=== PATIENT | female | born 1995 | race Caucasian/White ===

== ENCOUNTER 2018-08-15 17:35 | Inpatient (IN) | payer BC ==
[2018-08-15] MEDS: ELECTROLYTE-148 SOLN 1,000 ML IV SCH ×2 (18:15→22:30)
[2018-08-15 18:39] VITALS: BMI 28.8
[2018-08-15] MEDS ORDERED: TUBERCULIN PPD 5 TU/0.1ML SYRINGE (IN PATIENT USE ONLY) ID ONE (18:45)
[2018-08-15 18:57] LABS: BASO % 0.2 % (0-2.0); EOS % 0.4 % (0-4.5); HEMATOCRIT 35.6 % (32.4-45.2); HEMOGLOBIN 12.1 GM/dL (10.7-15.3); LYMPH % 11.1 % (8-40); MCH 30.9 pg (25.7-33.7); MONO % 5.9 % (3.8-10.2); NEUT % 82.4 % (42.8-82.8); PLATELET COUNT 148 K/MM3 (134-434); RBC 3.91 M/mm3 (3.60-5.2); RDW 12.6 % (11.6-15.6); WHITE BLOOD COUNT 13.7 K/mm3 (4.0-10.0)
[2018-08-15 19:20] LABS: INR 0.86 (0.83-1.09); PROTHROMBIN TIME (PATIENT) 10.1 SEC (9.7-13.0)
[2018-08-15 19:27] LABS: ANION GAP 13 MMOL/L (8-16); BLOOD UREA NITROGEN 6 mg/dL (7-18); CALCIUM 8.8 mg/dL (8.5-10.1); CHLORIDE 106 mmol/L (98-107); CO2 21 mmol/L (21-32); CREATININE 0.5 mg/dL (0.55-1.3); GLUCOSE,RANDOM 69 mg/dL (74-106); POTASSIUM 3.8 mmol/L (3.5-5.1); SODIUM 140 mmol/L (136-145)
[2018-08-15 19:29] LABS: ACTIVATED PTT 26.8 SECONDS (25.2-36.5)
[2018-08-15] MEDS ORDERED: NALOXONE HCL 0.4 MG/ML VIAL IVPUSH PRN (20:29)
[2018-08-15] MEDS ORDERED: BUPIVACAINE HCL/PF 0.25% (2.5MG/ML) 10 ML VIAL ONE (20:36)
[2018-08-15] MEDS ORDERED: LIDO 2%/EPI 1:200000 PRESRVFRE (20 ML SDVIAL) ONE (20:36)
[2018-08-15] MEDS ORDERED: FENTANYL/BUPIVACAINE/NS/PF - PCEA - 50 ML DISP.SYRIN EP ONE (20:40)
[2018-08-15] MEDS: FENTANYL/BUPIVACAINE/NS/PF - PCEA - 50 ML DISP.SYRIN EP SCH (21:05)
--- NOTE | 2018-08-15 23:31 | HP ---
Past Medical History - Admission History of Present Illness: 23 yo @ 40 6/7 wks by first trimester ultrasound, EDC 08/09/2018 complicated by: 1. Prior CD - desires TOLAC CD in 2016, failed IOL 2. LSIL - no changes on colposcopy for repeat colpo PP 3. Anterior low lying placenta - resolved by Level 2 4. Rubella Non-immune Patient presents with chief complaint of contractions which have been irregular for the past several days but increased in frequency and intensity at approximately 1 pm . She denies leakage of fluid or vaginal bleeding. She reports movement. History Source: Patient Limitations to Obtaining History: No Limitations - Past Medical History Cardiovascular: No: HTN Pulmonary: No: Asthma Gastrointestinal: No: GERD ...: 2 ...Para: 1 ...Term: 1 ...: 0 ...Spon : 0 ...Induced : 0 ...Multiple Gestation: 0 ...LMP: 11/02/17 ... Weeks Gestation by Dates: 40.6 ...EDC by Dates: 08/09/18 ...EDC by Sono: 08/09/18 Heme/Onc: No: Anemia - Past Surgical History Past Surgical History: Yes: Hx Myomectomy: No Hx Transabdominal Cerclage: No - Smoking History Smoking history: Never smoked Have you smoked in the past 12 months: No - Alcohol/Substance Use Hx Alcohol Use: No History of Substance Use: reports: None - Social History ADL: Independent History of Recent Travel: No Home Medications - Allergies Allergies/Adverse Reactions: Allergies Allergy/AdvReac Type Severity Reaction Status Date / Time No Known Allergies Allergy Verified 08/15/18 18:22 - Home Medications Home Medications: Ambulatory Orders Prenat 115/Iron Fum/Folic/Dss [ 19 Tablet] 1 tab PO DAILY 05/11/16 Family Disease History - Family Disease History Family History: Denies Review of Systems - Review of Systems Constitutional: reports: No Symptoms Neck: reports: No Symptoms Cardiovascular: reports: No Symptoms Respiratory: reports: No Symptoms Gastrointestinal: reports: No Symptoms Genitourinary: reports: No Symptoms Musculoskeletal: reports: No Symptoms Integumentary: reports: No Symptoms Hematology/Lymphatic: reports: No Symptoms Psychiatric: reports: No Symptoms Physical Exam - Maternity Vital Signs: Vital Signs Temperature 97.6 F 08/15/18 22:00 Pulse Rate 80 08/15/18 21:50 Respiratory Rate 16 08/15/18 21:50 Blood Pressure 100/56 L 08/15/18 21:50 O2 Sat by Pulse Oximetry (%) 99 08/15/18 21:50 Constitutional: Yes: Well Nourished, No Distress, Calm Cardiovascular: Yes: Regular Rate and Rhythm Lungs: Clear to auscultation - Abdominal Exam/OB Number of Fetuses: Single Intensity: Mod/Strong Monitor Mode: External Category: I Accelerations: Non-Uniform Decelerations: None - Vaginal Exam/OB Vaginal Bleediing: No Dilatation (cm): 4 Effacement (%): 75 Station: -1 - Physical Exam Edema: No Psychiatric: Yes: Alert, Oriented - Labs Lab Results: CBC, BMP 08/15/18 18:25 08/15/18 18:25 PNL: A positive, antibody negative; RPR NR; HIV neg; HBS Ag neg; HCV neg; Rubella non-immune; Varicella immune; Parvo non-immune; GCT elevated --> normal GTT; GBS neg Hemorrhage Risk Assessment - Risk Factors Medium Risk Factors: Yes: Prior , uterine surgery,or multiple laparotomies, None High Risk Factors: Yes: None Risk Score: 2 Risk Level: High Risk Assessment/Plan 23 yo @ 40 6/7 wks active labor 1. Admit to L&D 2. Routine labs reviewed 3. Category I FHT 4. Desires epidural for pain control 5. Reviewed risk of TOLAC, reviewed risk of uterine rupture, compromise with resulting neurologic compromise and . Reviewed risk of hemorrhage requiring transfusion, risk of emergent CD 6. Will continue to monitor
--- NOTE | 2018-08-16 01:17 | PN ---
Ante-Partal Exam - Subjective Subjective: Patient comfortable s/p epidural Vital Signs: Vital Signs Temperature 98.4 F 08/16/18 00:00 Pulse Rate 74 08/15/18 23:50 Respiratory Rate 16 08/15/18 23:50 Blood Pressure 106/59 L 08/15/18 23:50 O2 Sat by Pulse Oximetry (%) 98 08/15/18 23:50 Bleeding: No Headache: No Visual changes: No Right upper quadrant pain: No - Contractions Contractions: Yes Regularity: Regular Intensity: Unaware Monitor Mode: External - Exam during Labor Heart Rate: 130 Variability: Moderate Category: I Monitor Accelerations: Absent Monitor Decelerations: None Exam: Vaginal Dilatation (cm): 7 Effacement (%): 100 Amniotic Membrane Status: Ruptured Amniotic Fluid: Clear Presentation: Vertex Station: -1 - Intrapartum Hemorrhage Risk Medium Risk Factors: None High Risk Factors: None Risk Score: 0 Risk Level: Low Risk - Assessment/Plan Assessment/Plan: 23 yo TOLAC 1. Excellent cervical change. Will continue to monitor 2. GBS negative 3. Category I FHT 4. Will continue to monitor
[2018-08-16] MEDS ORDERED: FENTANYL/BUPIVACAINE/NS/PF - PCEA - 50 ML DISP.SYRIN EP ONE (02:07)
[2018-08-16] MEDS ORDERED: OXYTOCIN 20 UNITS in 0.9% NS 20 UNIT/1,000 ML INFUS.BAG IV ONE ×2 (05:10→06:52)
[2018-08-16] MEDS ORDERED: LIDOCAINE HCL 1% PRESERVATIVE FREE - 30ML VIAL ONE (06:25)
--- NOTE | 2018-08-16 06:39 | PN ---
Delivery - Delivery Vaginal Delivery: V-Dianne Type of Anesthesia: Epidural Episiotomy/Laceration: 2nd degree (+ perineal; L labial) EBL (cc): 300 Delivery, Single - Stages of Labor Date 1st Stage Initiatied: 08/15/18 Time 1st Stage Initiated: 13:00 Date 2nd Stage Initiated: 08/16/18 Time 2nd Stage Initiated: 05:25 Date of Delivery: 08/16/18 Time of Delivery: 06:12 Date Placenta Delivered: 08/16/18 Time Placenta Delivered: 06:32 Placenta: Yes: Spontaneous - Condition of Infant Gender: Female Position: Left, OA Total Hours ROM (Hrs/Mins): 8 hours 35 minutes - 1 Minute Total Score: 9 5 Minutes Total Score: 9 - [place] Feeding Plan Initial Plan: Elected not to breastfeed exclusively throughout hospitalization Remarks - Remarks Remarks: Patient progressed to fully dilated and at 0612 via delivered a viable female in NATALEE position, APGARs 9,9. Weight and length unknown at this time. Head delivered spontaneously, nuchal cord noted and reduced, shoulders and body followed without difficulty. with spontaneous cry and placed on mother's abdomen. Nose and mouth was bulb suctioned. Cord was clamped and cut. Perineum and vagina examined, a second degree laceration was noted and repaired in the usual fashion. Rectal exam revealed no sutures in rectum. Placenta was delivered spontaneously and intact. 20 units of pitocin in 1 L IVF was given. All counts correct x 2. Mother and stable in LDR. EBL 300cc.
[2018-08-16] MEDS ORDERED: BENZOCAINE 20% 57 GM BOTTLE TP PRN (06:42)
[2018-08-16] MEDS ORDERED: ACETAMINOPHEN 325 MG TABLET (FP) PO PRN (06:42)
[2018-08-16] MEDS ORDERED: METHYLERGONOVINE MALEATE 0.2 MG/1 ML AMP IM PRN (06:42)
[2018-08-16] MEDS ORDERED: BENZOCAINE 28 GM HEMORRHOIDAL OINTMENT TP PRN (06:42)
[2018-08-16] MEDS ORDERED: WITCH HAZEL 50% (TUCKS) 40 PAD/JAR PAD TP PRN (06:42)
[2018-08-16] MEDS ORDERED: BISACODYL 10 MG SUPP.RECT RC PRN (06:42)
[2018-08-16] MEDS ORDERED: oxyCODONE HCL 5 MG TABLET PO PRN (06:42)
[2018-08-16] MEDS ORDERED: IBUPROFEN 600 MG TABLET (FP) PO PRN (06:42)
[2018-08-16] MEDS ORDERED: OXYTOCIN 20 UNITS in 0.9% NS 20 UNIT/1,000 ML INFUS.BAG IV SCH (06:45)
[2018-08-16] MEDS: PRENATAL VITAMINS W/ FOLIC ACID TABLET (FP) PO SCH (10:00)
--- NOTE | 2018-08-16 21:59 | DS ---
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: Vital Signs Temperature 98.1 F 08/16/18 20:00 Pulse Rate 75 08/16/18 20:00 Respiratory Rate 20 08/16/18 20:00 Blood Pressure 93/64 08/16/18 20:00 O2 Sat by Pulse Oximetry (%) 99 08/16/18 08:30 Labs: CBC, BMP 08/15/18 18:25 08/15/18 18:25 Delivery - Delivery Vaginal Delivery: V-Dianne Type of Anesthesia: Local, Epidural Episiotomy/Laceration: 2nd degree EBL (cc): 300 Delivery, Single - Stages of Labor Date 1st Stage Initiatied: 08/15/18 Time 1st Stage Initiated: 13:00 Date 2nd Stage Initiated: 08/16/18 Time 2nd Stage Initiated: 05:45 Date of Delivery: 08/16/18 Time of Delivery: 06:12 Time Placenta Delivered: 06:32 Placenta: Yes: Spontaneous - 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 Weight and length unknown at this time. Head delivered spontaneously, nuchal cord noted and reduced, shoulders and body followed without difficulty. Infant with spontaneous cry and placed on mother's abdomen. Nose and mouth was bulb suctioned. Cord was clamped and cut. Perineum and vagina examined, a second degree laceration was noted and repaired in the usual fashion. Rectal exam revealed no sutures in rectum. Placenta was delivered spontaneously and intact. 20 units of pitocin in 1 L IVF was given. All counts correct x 2. Mother and stable in LDR. EBL 300cc. Discharge Summary Reason For Visit: LABOR Current Active Problems Vaginal after () (Acute) Procedures: Principal: Vaginal after delivery Hospital Course: Patient admitted in labor. She received an epidural for pain control. She progressed to delivery via successful a viable female infant. PPD # 1 she ambulated, voided and had adequate pain control. CXR was performed for PPD positive, CXR was negative. She fulfilled all criteria for discharge home PPD #2 Condition: Good - Instructions Diet, Activity, Other Instructions: Physical activity Resume your normal everyday activity as tolerated no heavy lifting or exercise until seen by your surgeon. You may walk unlimited rosario of and climb stairs. You may resume driving the car when you feel safe and comfortable behind the wheel. No sexual activity as instructed. Diet There are no dietary restrictions. Eat healthy, high-fiber foods. Drink 6 to 8 glasses of liquid each day. This will assist in keeping your bowels are regular. Pain management You may take Tylenol or acetaminophen or Ibuprofen (for example, Motrin, Advil etc.) from my pain prescription medication is ordered should be taken as prescribed for moderate to severe pain. Call MD for any of the following: Severe pain not relieved by medication Fever of 101 or higher Excessive bleeding or drainage on dressing Inability to urinate Referrals: Chloe Bartlett MD [Staff Physician] - Disposition: HOME - Home Medications Comprehensive Discharge Medication List: Ambulatory Orders Prenat 115/Iron Fum/Folic/Dss [ 19 Tablet] 1 tab PO DAILY 05/11/16
--- NOTE | 2018-08-17 07:27 | PN ---
Post Progress Note - Subjective Subjective: Patient without acute complaints. Reports tolerating oral intake without nausea or vomiting. Ambulating without dizziness. Denies fevers or chills. Pain well controlled with oral pain medication. without difficulty. Passing flatus. Post Day: 1 Type of Delivery: Vital Signs: Vital Signs Temperature 98.1 F 08/17/18 04:00 Pulse Rate 80 08/17/18 04:00 Respiratory Rate 18 08/17/18 04:00 Blood Pressure 110/60 08/17/18 04:00 O2 Sat by Pulse Oximetry (%) 99 08/16/18 08:30 Breast Exam: Yes: Soft Uterus: Yes: Fundus @ umbilicus, Fundus below umbilicus Abdomen/GI: Yes: Abdomen soft, Passing flatus, Tolerating PO. No: Abdominal Distention, Tender Lochia: Yes: Serosa Lochia, amount: Small Extremities: Yes: Calves non-tender. No: Edema Activity: Ambulating - Labs Labs: CBC WBC 13.7 K/mm3 (4.0-10.0) H 08/15/18 18:25 RBC 3.91 M/mm3 (3.60-5.2) 08/15/18 18:25 Hgb 12.1 GM/dL (10.7-15.3) 08/15/18 18:25 Hct 35.6 % (32.4-45.2) 08/15/18 18:25 MCV 91.0 fl (80-96) 08/15/18 18:25 MCH 30.9 pg (25.7-33.7) 08/15/18 18:25 MCHC 34.0 g/dl (32.0-36.0) 08/15/18 18:25 RDW 12.6 % (11.6-15.6) 08/15/18 18:25 Plt Count 148 K/MM3 (134-434) 08/15/18 18:25 MPV 10.0 fl (7.5-11.1) 08/15/18 18:25 Absolute Neuts (auto) 11.3 K/mm3 (1.5-8.0) H 08/15/18 18:25 Neutrophils % 82.4 % (42.8-82.8) 08/15/18 18:25 Lymphocytes % 11.1 % (8-40) D 08/15/18 18:25 Monocytes % 5.9 % (3.8-10.2) 08/15/18 18:25 Eosinophils % 0.4 % (0-4.5) 08/15/18 18:25 Basophils % 0.2 % (0-2.0) 08/15/18 18:25 Nucleated RBC % 0 % (0-0) 08/15/18 18:25 Assessment/Plan 23 yo PPD # 1 s/p 1. Continue routine care. 2. Follow up AM CBC 3. Rh positive status, no rhogam indicated. 4. Encourage ambulation 5. Continue oral pain medication 6. Anticipate discharge home day #2
[2018-08-17 08:04] LABS: BASO % 0.4 % (0-2.0); HEMATOCRIT 29.2 % (32.4-45.2); HEMOGLOBIN 9.7 GM/dL (10.7-15.3); LYMPH % 17.7 % (8-40); MCH 30.6 pg (25.7-33.7); MCHC 33.4 g/dl (32.0-36.0); MEAN CELL VOLUME 91.5 fl (80-96); MEAN PLT VOLUME 9.8 fl (7.5-11.1); MONO % 6.6 % (3.8-10.2); NEUT % 74.3 % (42.8-82.8); PLATELET COUNT 109 K/MM3 (134-434); RBC 3.19 M/mm3 (3.60-5.2); WHITE BLOOD COUNT 12.3 K/mm3 (4.0-10.0)
[2018-08-17] MEDS: SIMETHICONE 80 MG TAB.CHEW (FP) PO PRN ×3 (12:30→23:08)
[2018-08-17] MEDS: PRENATAL VITAMINS W/ FOLIC ACID TABLET (FP) PO SCH (12:33)
[2018-08-17] MEDS ORDERED: SENNOSIDES/DOCUSATE COMBO (SENNA PLUS) TABLET (UD) PO PRN (22:00)
[2018-08-18] MEDS: FENTANYL/BUPIVACAINE/NS/PF - PCEA - 50 ML DISP.SYRIN EP SCH ×2 (06:43→06:45)
--- NOTE | 2018-08-18 07:43 | PN ---
Post Progress Note - Subjective Subjective: Patient without acute complaints. Reports tolerating oral intake without nausea or vomiting. Ambulating without dizziness. Denies fevers or chills. Pain well controlled with oral pain medication. without difficulty. Passing flatus. Desires to have BM Post Day: 2 Type of Delivery: Vital Signs: Vital Signs Temperature 98.5 F 08/17/18 22:00 Pulse Rate 75 08/17/18 22:00 Respiratory Rate 20 08/17/18 22:00 Blood Pressure 121/71 08/17/18 22:00 O2 Sat by Pulse Oximetry (%) 99 08/16/18 08:30 Breast Exam: Yes: Soft Uterus: Yes: Fundus Firm, Fundus above umbilicus (She did not urinate) Abdomen/GI: Yes: Abdomen soft, Passing flatus, Tolerating PO Lochia: Yes: Rubra Lochia, amount: Small Extremities: Yes: Calves non-tender Perineum: Yes: Laceration Activity: Ambulating - Labs Labs: CBC WBC 12.3 K/mm3 (4.0-10.0) H 08/17/18 07:15 RBC 3.19 M/mm3 (3.60-5.2) L 08/17/18 07:15 Hgb 9.7 GM/dL (10.7-15.3) L 08/17/18 07:15 Hct 29.2 % (32.4-45.2) L D 08/17/18 07:15 MCV 91.5 fl (80-96) 08/17/18 07:15 MCH 30.6 pg (25.7-33.7) 08/17/18 07:15 MCHC 33.4 g/dl (32.0-36.0) 08/17/18 07:15 RDW 13.0 % (11.6-15.6) 08/17/18 07:15 Plt Count 109 K/MM3 (134-434) L D 08/17/18 07:15 MPV 9.8 fl (7.5-11.1) 08/17/18 07:15 Absolute Neuts (auto) 9.1 K/mm3 (1.5-8.0) H 08/17/18 07:15 Neutrophils % 74.3 % (42.8-82.8) 08/17/18 07:15 Lymphocytes % 17.7 % (8-40) D 08/17/18 07:15 Monocytes % 6.6 % (3.8-10.2) 08/17/18 07:15 Eosinophils % 1.0 % (0-4.5) D 08/17/18 07:15 Basophils % 0.4 % (0-2.0) 08/17/18 07:15 Nucleated RBC % 0 % (0-0) 08/17/18 07:15 Assessment/Plan 23 yo PPD # 2s/p 1. Doing well 2. VSS, Afebrile, no evidance of acute blood loss 3. Rh positive status, no rhogam indicated. 4. Encourage ambulation 5. Continue oral pain medication 6. Discharge home today 7. Instructed on Pelvic rest for 6weeks 8. Return to office in 4-6 weeks
[2018-08-18 09:24] VITALS: BP 111/64; PULSE 83; TEMP 98.1
[2018-08-18] MEDS: PRENATAL VITAMINS W/ FOLIC ACID TABLET (FP) PO SCH (09:40)
[2018-08-18 10:31] LABS: BASO % 0.3 % (0-2.0); EOS % 1.7 % (0-4.5); HEMATOCRIT 33.8 % (32.4-45.2); HEMOGLOBIN 11.5 GM/dL (10.7-15.3); LYMPH % 16.1 % (8-40); MCH 31.2 pg (25.7-33.7); MCHC 34.1 g/dl (32.0-36.0); MEAN CELL VOLUME 91.3 fl (80-96); MEAN PLT VOLUME 9.1 fl (7.5-11.1); MONO % 4.3 % (3.8-10.2); NEUT % 77.6 % (42.8-82.8); PLATELET COUNT 145 K/MM3 (134-434); RDW 13.3 % (11.6-15.6); WHITE BLOOD COUNT 10.2 K/mm3 (4.0-10.0)
== END 2018-08-18 13:35 | disposition home or self-care (01) | DRG 775 ==
LOC: JDEL 17:35 → JLDR 18:10 → J3W 08-16 08:30
PROVIDERS: ADMIT Obstetrics & Gynecology; ATTEND Obstetrics & Gynecology
PROC: 0KQM0ZZ Repair Perineum Muscle, Open Approach (ICD-10-PCS; principal; 2018-08-16)
PROC: 10E0XZZ Delivery of Products of Conception, External Approach (ICD-10-PCS; 2018-08-16)
DX: O34.211 Maternal care for low transverse scar from previous cesarean delivery (principal); O48.0 Post-term pregnancy; O69.81X0 Labor and delivery complicated by cord around neck, without compression, not applicable or unspecified; O70.1 Second degree perineal laceration during delivery; Z3A.40 40 weeks gestation of pregnancy; Z37.0 Single live birth
CPT/HCPCS: 36415; 59409; 71046-TC-FY; 80048; 85025; 85610; 85730; 86593; 86850; 86900; 86901

== ENCOUNTER 2022-04-27 03:35 | Inpatient (IN) | payer BC ==
[2022-04-27] MEDS ORDERED: OXYTOCIN 20 UNITS in 0.9% NS 20 UNIT/1,000 ML INFUS.BAG IV ONE (04:15)
[2022-04-27] MEDS ORDERED: OXYTOCIN 30 UNITS in 0.9% NS 30 UNIT/500 ML INFUS.BAG IVPB ONE (04:23)
[2022-04-27] MEDS ORDERED: ACETAMINOPHEN 325 MG TABLET (FP) PO PRN (04:59)
[2022-04-27] MEDS ORDERED: METHYLERGONOVINE MALEATE 0.2 MG/1 ML AMP IM PRN (04:59)
[2022-04-27] MEDS ORDERED: BENZOCAINE 28 GM HEMORRHOIDAL OINTMENT TP PRN (04:59)
[2022-04-27] MEDS ORDERED: BENZOCAINE 20% 57 GM BOTTLE TP PRN (04:59)
[2022-04-27] MEDS ORDERED: WITCH HAZEL 50% (TUCKS) 40 PAD/JAR PAD TP PRN (04:59)
[2022-04-27] MEDS ORDERED: IBUPROFEN 600 MG TABLET (FP) PO PRN (04:59)
[2022-04-27] MEDS ORDERED: oxyCODONE HCL 5 MG TABLET PO PRN (04:59)
[2022-04-27] MEDS ORDERED: BISACODYL 10 MG SUPP.RECT RC PRN (04:59)
[2022-04-27] MEDS ORDERED: DEXTROSE 5%-LACTATED RINGERS 1,000 ML IV SCH (05:00)
[2022-04-27] MEDS ORDERED: OXYTOCIN 20 UNITS in 0.9% NS 20 UNIT/1,000 ML INFUS.BAG IV SCH (05:00)
[2022-04-27 05:21] VITALS: BMI 28.3
[2022-04-27 05:33] LABS: BASO % 0.1 % (0-2.0); EOS % 0.2 % (0-4.5); HEMATOCRIT 32.8 % (32.4-45.2); LYMPH % 7.5 % (8-40); MCH 28.8 pg (25.7-33.7); MCHC 33.5 g/dl (32.0-36.0); MEAN PLT VOLUME 9.2 fl (7.5-11.1); MONO % 5.5 % (3.8-10.2); NEUT % 86.7 % (42.8-82.8); PLATELET COUNT 142 10^3/uL (134-434); RBC 3.82 M/mm3 (3.60-5.2); RDW 12.7 % (11.6-15.6); WHITE BLOOD COUNT 14.7 K/mm3 (4.0-10.0)
[2022-04-27 05:47] LABS: INR 0.94 (0.83-1.09); PROTHROMBIN TIME (PATIENT) 10.8 SEC (9.7-13.0)
[2022-04-27 05:50] LABS: ACTIVATED PTT 25.3 SECONDS (25.2-36.5)
[2022-04-27 05:56] LABS: ALBUMIN 2.7 g/dl (3.4-5.0); BLOOD UREA NITROGEN 6.6 mg/dL (7-18); CALCIUM 8.3 mg/dL (8.5-10.1)
[2022-04-27 05:59] LABS: CREATININE 0.5 mg/dL (0.55-1.3)
[2022-04-27 06:01] LABS: BILIRUBIN,TOTAL 0.6 mg/dL (0.2-1); TOT PROT 6.3 g/dl (6.4-8.2)
[2022-04-27 06:40] LABS: CORD BASE EXCESS -7.9 mmol/L (0-2); CORD HCO3 21.2 mmHg (20-29); CORD PCO2 59.3 mmHg (30-78); CORD pH 7.172 (7.14-7.44)
[2022-04-27 06:40] LABS: CORD BASE EXCESS -4.7 mmol/L (0-2); CORD HCO3 22.4 mmHg (20-29); CORD PCO2 49.1 mmHg (30-78); CORD pH 7.277 (7.14-7.44)
[2022-04-27 11:17] LABS: HEPATITIS B SURFACE AG MATERN NON-REACTIVE (NONREACTIVE)
[2022-04-27 11:18] LABS: SYPHILIS W/ RPR CONF NON-REACTIVE (NONREACTIVE)
[2022-04-27 11:46] LABS: HIV INTERPRETATION NEGATIVE (NEGATIVE)
[2022-04-28 08:39] VITALS: BP 100/67; PULSE 82; TEMP 98
[2022-04-28 08:44] LABS: BASO % 0.3 % (0-2.0); EOS % 0.9 % (0-4.5); HEMATOCRIT 32.8 % (32.4-45.2); HEMOGLOBIN 10.9 GM/dL (10.7-15.3); LYMPH % 16.9 % (8-40); MCH 28.3 pg (25.7-33.7); MCHC 33.4 g/dl (32.0-36.0); MEAN CELL VOLUME 84.8 fl (80-96); MEAN PLT VOLUME 8.8 fl (7.5-11.1); NEUT % 75.9 % (42.8-82.8); PLATELET COUNT 161 10^3/uL (134-434); RBC 3.87 M/mm3 (3.60-5.2); RDW 13.2 % (11.6-15.6); WHITE BLOOD COUNT 12.6 K/mm3 (4.0-10.0)
[2022-04-28] MEDS ORDERED: SENNOSIDES/DOCUSATE COMBO (SENNA PLUS) TABLET (UD) PO PRN (22:00)
== END 2022-04-28 16:55 | disposition home or self-care (01) | DRG 807 ==
LOC: JDEL 03:35 → JLDR 04:00 → J3W 07:45
PROVIDERS: ADMIT Obstetrics & Gynecology; ATTEND Obstetrics & Gynecology
PROC: 10E0XZZ Delivery of Products of Conception, External Approach (ICD-10-PCS; principal; 2022-04-27)
PROC: 0HQ9XZZ Repair Perineum Skin, External Approach (ICD-10-PCS; 2022-04-27)
DX: O34.219 Maternal care for unspecified type scar from previous cesarean delivery (principal); Z37.0 Single live birth; O48.0 Post-term pregnancy; O70.0 First degree perineal laceration during delivery; Z3A.40 40 weeks gestation of pregnancy
CPT/HCPCS: 36415; 36600; 59409; 80053; 82803; 85025; 85610; 85730; 86762; 86780; 86850; 86900; 86901; 87340; 87389; C9803-CS; U0003; U0005